=== PATIENT | male | born 1960 | race Caucasian/White ===

== ENCOUNTER 2019-06-19 18:30 | Inpatient (IN) | payer OTHER ==
[2019-06-19] MEDS ORDERED: DIPH,PERTUS(ACELL)TETVAC-LF 0.5 ML VIAL IM ONE (18:40)
[2019-06-19] MEDS ORDERED: SODIUM CHLORIDE 0.9% 1,000 ML IV STA (18:40)
[2019-06-19 18:41] LABS: Glucose,Whole Blood 452 mg/dL (75-99)
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
[2019-06-19 18:57] LABS: Basophils % (A) 0 %; Eosinophils # (A) 0.1 k/uL (0-0.7); Eosinophils % (A) 0 %; HCT 41.6 % (39.0-53.0); HGB 13.7 gm/dL (13.0-17.5); Lymphocytes # (A) 1.3 k/uL (1.0-4.8); Lymphocytes % (A) 10 %; MCH 28.9 pg (25.0-35.0); MCHC 32.9 g/dL (31.0-37.0); MCV 87.7 fL (80.0-100.0); Mean Platelet Volume 7.1; Monocytes # (A) 0.5 k/uL (0-1.0); Monocytes % (A) 4 %; Neutrophils # (A) 11.3 k/uL (1.3-7.7); Neutrophils % (A) 85 %; Platelet Count 346 k/uL (150-450); RBC 4.75 m/uL (4.30-5.90); RDW 13.9 % (11.5-15.5); WBC 13.3 k/uL (3.8-10.6)
[2019-06-19 19:01] LABS: ALT 74 U/L (21-72); AST 171 U/L (17-59); African American GFR (CKD) >90 (>60 ml/min/1.73 sqM); Albumin 3.8 g/dL (3.5-5.0); Alcohol 18 mg/dL; Alkaline Phosphatase 75 U/L (38-126); Amylase 31 U/L (30-110); Anion Gap 19 mmol/L; Blood Urea Nitrogen 19 mg/dL (9-20); Carbon Dioxide 13 mmol/L (22-30); Chloride 103 mmol/L (98-107); Glucose 480 mg/dL (74-99); Potassium 5.3 mmol/L (3.5-5.1); Sodium 135 mmol/L (137-145); Total Bilirubin 0.5 mg/dL (0.2-1.3); Total Protein 6.5 g/dL (6.3-8.2)
[2019-06-19 19:05] LABS: INR 0.9 (<1.2); Prothrombin Time 9.8 sec (9.0-12.0)
[2019-06-19 19:07] LABS: Partial Thromboplastin Time 21.5 sec (22.0-30.0)
[2019-06-19] MEDS ORDERED: SODIUM CHLORIDE 0.9% 1,000 ML IV ONE (19:07)
[2019-06-19 19:10] LABS: Creatine Kinase 176 U/L (55-170)
[2019-06-19 19:24] LABS: Creatine Kinase MB 1.3 ng/mL (0.0-2.4); Troponin I <0.012 ng/mL (0.000-0.034)
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
--- NOTE | 2019-06-19 19:26 | XR ---
EXAMINATION TYPE: XR pelvis AP view DATE OF EXAM: 06/19/2019 COMPARISON: NONE HISTORY: Pain TECHNIQUE: Single view FINDINGS: Pelvic ring appears intact. Proximal femurs are intact. There is right hip joint space narr owing. There is right femoral head spur formation. Sacroiliac joints appear intact. IMPRESSION: No fracture seen. Moderate osteoarthritis right hip joint.
[2019-06-19] MEDS: MORPHINE SULFATE 4 MG/ML SYRINGE IVP STA ×2 (19:31→21:40)
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
[2019-06-19 19:39] LABS: Appearance,Urine Clear (Clear); Bilirubin,Urine Negative (Negative); Blood,Urine Negative (Negative); Color,Urine Light Yellow; Glucose,Urine (UA) 4+ (Negative); Leukocyte Esterase,Urine Negative (Negative); Nitrite,Urine Negative (Negative); Protein,Urine Negative (Negative); Specific Gravity,Urine 1.027 (1.001-1.035); Urobilinogen,Urine <2.0 mg/dL (<2.0)
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
[2019-06-19 19:53] LABS: Glucose,Whole Blood 414 mg/dL (75-99)
[2019-06-19 19:54] LABS: Amphetamine Screen,Urine Not Detected (NotDetected); Barbiturate Screen,Urine Not Detected (NotDetected); Benzodiazepines Screen,Urine Not Detected (NotDetected); Cocaine Screen,Urine Not Detected (NotDetected); Methadone Screen, Urine Not Detected (NotDetected); Opiate Screen,Urine Detected (NotDetected); Oxycodone Screen, Urine Not Detected (NotDetected); Phencyclidine Screen,Urine Not Detected (NotDetected); Tricyclic Antidepressant,Urine Not Detected (NotDetected); Urn Cannabinoid Scrn Not Detected (NotDetected)
[2019-06-19 20:00] LABS: Ketones,Urine 2+ (Negative)
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
--- NOTE | 2019-06-19 20:50 | XR ---
EXAMINATION TYPE: XR shoulder complete BILAT DATE OF EXAM: 06/19/2019 COMPARISON: NONE HISTORY: Pain. TECHNIQUE: 3 views each shoulder. FINDINGS: I see no fracture nor dislocation. Glenohumeral joints are anatomic. There is soft tissue s welling lateral to the left shoulder joint. IMPRESSION: Soft tissue swelling. No fracture seen.
--- NOTE | 2019-06-19 20:51 | XR ---
EXAMINATION TYPE: XR humerus bilateral DATE OF EXAM: 06/19/2019 COMPARISON: NONE HISTORY: Pain TECHNIQUE: 3 views each humerus FINDINGS: I see no fracture nor dislocation. Elbow joint and shoulder joint appear intact. There is s oft tissue swelling lateral to the left shoulder. IMPRESSION: Left-sided soft tissue swelling. No fracture seen.
[2019-06-19] MEDS ORDERED: INSULIN REGULAR BOLUS (FROM DRIP BAG) IV ONE (21:10)
[2019-06-19] MEDS ORDERED: Potassium Replacement Protocol 1 EACH MISC MISCELLANE PRN (21:10)
[2019-06-19] MEDS ORDERED: Magnesium Replacement Protocol 1 EACH MISC MISCELLANE PRN (21:10)
[2019-06-19] MEDS ORDERED: ACETAMINOPHEN TAB 325 MG TAB PO PRN (21:22)
[2019-06-19] MEDS ORDERED: ONDANSETRON 4 MG/2 ML VIAL IVP PRN (21:22)
[2019-06-19] MEDS ORDERED: NALOXONE 0.4 MG/ML 1 ML VIAL IV PRN (21:22)
[2019-06-19] MEDS: SODIUM CHLORIDE 0.9% 1,000 ML IV SCH ×2 (21:43→21:49)
[2019-06-19] MEDS ORDERED: MORPHINE SULFATE 4 MG/ML SYRINGE IVP STA (21:44)
[2019-06-19 21:46] LABS: Glucose,Whole Blood 273 mg/dL (75-99)
[2019-06-19 22:50] LABS: Glucose,Whole Blood 228 mg/dL (75-99)
[2019-06-20] MEDS ORDERED: LIDOCAINE 5% OINTMENT 50 GM JAR TOPICAL PRN
[2019-06-20] MEDS: HYDROcodone/APAP 5-325MG 1 EACH TAB PO PRN ×3 (00:01→10:07)
[2019-06-20] MEDS: INSULIN REGULAR 100 UNIT in SODIUM CHLORIDE 0.9% 100 ML IV SCH ×2 (00:02→07:54)
[2019-06-20] MEDS: MORPHINE SULFATE 4 MG/ML SYRINGE IVP PRN ×2 (00:47→08:12)
[2019-06-20 00:52] LABS: ALT 65 U/L (21-72); AST 86 U/L (17-59); African American GFR (CKD) >90 (>60 ml/min/1.73 sqM); Albumin 3.6 g/dL (3.5-5.0); Alkaline Phosphatase 66 U/L (38-126); Anion Gap 11 mmol/L; Blood Urea Nitrogen 18 mg/dL (9-20); Calcium 8.7 mg/dL (8.4-10.2); Carbon Dioxide 21 mmol/L (22-30); Chloride 106 mmol/L (98-107); Glucose 224 mg/dL (74-99); Potassium 4.6 mmol/L (3.5-5.1); Sodium 138 mmol/L (137-145); Total Bilirubin 0.6 mg/dL (0.2-1.3); Total Protein 6.3 g/dL (6.3-8.2)
[2019-06-20 05:14] LABS: Basophils # (A) 0.1 k/uL (0-0.2); Basophils % (A) 0 %; Eosinophils # (A) 0.2 k/uL (0-0.7); Eosinophils % (A) 1 %; HCT 34.7 % (39.0-53.0); HGB 11.9 gm/dL (13.0-17.5); Lymphocytes % (A) 8 %; MCH 29.2 pg (25.0-35.0); MCHC 34.3 g/dL (31.0-37.0); MCV 85.2 fL (80.0-100.0); Mean Platelet Volume 7.4; Monocytes # (A) 0.8 k/uL (0-1.0); Monocytes % (A) 7 %; Neutrophils # (A) 9.8 k/uL (1.3-7.7); Neutrophils % (A) 83 %; Platelet Count 277 k/uL (150-450); RBC 4.08 m/uL (4.30-5.90); RDW 15.4 % (11.5-15.5); WBC 11.9 k/uL (3.8-10.6)
[2019-06-20 05:42] LABS: African American GFR (CKD) >90 (>60 ml/min/1.73 sqM); Anion Gap 9 mmol/L; Blood Urea Nitrogen 15 mg/dL (9-20); Calcium 7.2 mg/dL (8.4-10.2); Carbon Dioxide 18 mmol/L (22-30); Chloride 110 mmol/L (98-107); Glucose 211 mg/dL (74-99); Potassium 3.8 mmol/L (3.5-5.1); Sodium 137 mmol/L (137-145)
[2019-06-20 06:52] LABS: Glucose,Whole Blood 204 mg/dL (75-99)
[2019-06-20] MEDS: INSULIN ASPART (NovoLOG) 100 UNIT/ML VIAL SQ SCH ×4 (07:04→21:17)
[2019-06-20] MEDS: SODIUM CHLORIDE 0.9% 1,000 ML IV SCH ×3 (09:00→18:43)
[2019-06-20] MEDS: PANTOPRAZOLE 40 MG/10 ML VIAL IV SCH (09:02)
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
[2019-06-20] MEDS ORDERED: INSULIN DETEMIR (LEVEMIR) 100 UNIT/ML SYR SQ ONE (09:45)
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
[2019-06-20 11:44] LABS: Glucose,Whole Blood 168 mg/dL (75-99)
[2019-06-20] MEDS ORDERED: IV FLUID CONTINUATION 1,000 ML IV ONE (13:08)
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
[2019-06-20] MEDS ORDERED: fentaNYL (PF) 50 MCG/ML 2 ML AMP ONE (14:18)
[2019-06-20] MEDS ORDERED: LIDOCAINE 1% INJ 10MG/ML (20 ML MDV) ONE (14:18)
[2019-06-20] MEDS ORDERED: ROCURONIUM BROMIDE 10 MG/ML 10 ML VIAL IV ONE (14:18)
[2019-06-20] MEDS ORDERED: PROPOFOL 10 MG/ML 20 ML VIAL IV ONE (14:18)
[2019-06-20] MEDS ORDERED: MIDAZOLAM 2 MG/2 ML VIAL ONE (14:18)
[2019-06-20] MEDS ORDERED: SUCCINYLCHOLINE CHLORIDE 100 MG/5 ML SYR IV ONE (14:18)
[2019-06-20] MEDS ORDERED: HYDROmorphone (PF) 1 MG/ML ONE (14:18)
[2019-06-20] MEDS ORDERED: SODIUM CHLORIDE 0.9% 50 ML with ceFAZolin 1,000 MG IV ONE ×2 (14:51)
[2019-06-20] MEDS ORDERED: LACTATED RINGERS 1,000 ML IV ONE (16:44)
[2019-06-20 17:18] LABS: Glucose,Whole Blood 163 mg/dL (75-99)
[2019-06-20] MEDS ORDERED: HYDROmorphone 0.5 MG/0.5 ML SYRINGE IVP PRN (17:35)
[2019-06-20] MEDS ORDERED: HYDROmorphone 1 MG/ML 1 ML SYRINGE IVP ONE ×2 (17:44→17:54)
[2019-06-20 18:20] LABS: Glucose,Whole Blood 161 mg/dL (75-99)
[2019-06-20] MEDS: ENOXAPARIN 40 MG/0.4 ML SYRINGE SQ SCH (19:14)
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
[2019-06-20 20:30] LABS: Glucose,Whole Blood 157 mg/dL (75-99)
[2019-06-20] MEDS ORDERED: SODIUM CHLORIDE 0.9% 1,000 ML IV SCH (21:15)
[2019-06-20 21:18] LABS: Glucose,Whole Blood 178 mg/dL (75-99)
[2019-06-20] MEDS: HYDROmorphone 1 MG/ML 1 ML SYRINGE IVP PRN (21:18)
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
[2019-06-21 00:16] LABS: Glucose,Whole Blood 164 mg/dL (75-99)
[2019-06-21] MEDS: HYDROmorphone 1 MG/ML 1 ML SYRINGE IVP PRN ×2 (02:48→14:11)
[2019-06-21 05:09] LABS: Basophils # (A) 0.1 k/uL (0-0.2); Basophils % (A) 1 %; Eosinophils # (A) 0.1 k/uL (0-0.7); Eosinophils % (A) 1 %; HCT 35.2 % (39.0-53.0); HGB 11.7 gm/dL (13.0-17.5); Lymphocytes # (A) 0.9 k/uL (1.0-4.8); Lymphocytes % (A) 9 %; MCH 28.4 pg (25.0-35.0); MCHC 33.3 g/dL (31.0-37.0); MCV 85.4 fL (80.0-100.0); Mean Platelet Volume 7.8; Monocytes # (A) 0.9 k/uL (0-1.0); Monocytes % (A) 9 %; Neutrophils % (A) 79 %; Platelet Count 295 k/uL (150-450); RBC 4.13 m/uL (4.30-5.90); RDW 14.6 % (11.5-15.5); WBC 10.1 k/uL (3.8-10.6)
[2019-06-21 05:25] LABS: African American GFR (CKD) >90 (>60 ml/min/1.73 sqM); Anion Gap 10 mmol/L; Blood Urea Nitrogen 9 mg/dL (9-20); Calcium 7.9 mg/dL (8.4-10.2); Carbon Dioxide 21 mmol/L (22-30); Chloride 102 mmol/L (98-107); Glucose 183 mg/dL (74-99); Potassium 3.8 mmol/L (3.5-5.1); Sodium 133 mmol/L (137-145)
[2019-06-21] MEDS: HYDROcodone/APAP 5-325MG 1 EACH TAB PO PRN ×3 (05:57→22:27)
[2019-06-21 07:00] LABS: Glucose,Whole Blood 216 mg/dL (75-99)
[2019-06-21] MEDS: INSULIN ASPART (NovoLOG) 100 UNIT/ML VIAL SQ SCH ×4 (07:04→22:28)
--- NOTE | 2019-06-21 08:07 | XR ---
EXAMINATION TYPE: XR ankle limited LT DATE OF EXAM: 06/20/2019 COMPARISON: NONE HISTORY: ORIF TECHNIQUE: 4 intraoperative views submitted FINDINGS: Postsurgical changes are seen in near-anatomic alignment. IMPRESSION: Postoperative change
--- NOTE | 2019-06-21 08:31 | XR ---
EXAMINATION TYPE: XR toes RT DATE OF EXAM: 06/20/2019 COMPARISON: NONE HISTORY: Intraoperative TECHNIQUE: 2 intraoperative images submitted FINDINGS: There is postsurgical change involving the first digit. IMPRESSION: Intraoperative image
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
[2019-06-21] MEDS ORDERED: INSULIN DETEMIR (LEVEMIR) 100 UNIT/ML SYR SQ SCH ×2 (09:30→21:00)
[2019-06-21] MEDS: PANTOPRAZOLE 40 MG/10 ML VIAL IV SCH (09:32)
[2019-06-21] MEDS: HYDROmorphone 0.5 MG/0.5 ML SYRINGE IVP PRN (09:32)
[2019-06-21] MEDS: ENOXAPARIN 40 MG/0.4 ML SYRINGE SQ SCH (09:32)
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
[2019-06-21 12:38] LABS: Glucose,Whole Blood 286 mg/dL (75-99)
[2019-06-21] MEDS: PETROLAT,WHITE/LAN/8-HYDROXYQU 227 GM OINT TOPICAL SCH (14:14)
[2019-06-21 17:01] LABS: Glucose,Whole Blood 324 mg/dL (75-99)
[2019-06-21 20:41] LABS: Glucose,Whole Blood 279 mg/dL (75-99)
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
[2019-06-22 06:40] LABS: Glucose,Whole Blood 117 mg/dL (75-99)
[2019-06-22] MEDS: HYDROcodone/APAP 5-325MG 1 EACH TAB PO PRN ×2 (07:15→12:56)
[2019-06-22] MEDS: INSULIN ASPART (NovoLOG) 100 UNIT/ML VIAL SQ SCH ×4 (07:16→20:44)
[2019-06-22] MEDS: PANTOPRAZOLE 40 MG TABLET PO SCH (09:00)
[2019-06-22] MEDS: ENOXAPARIN 40 MG/0.4 ML SYRINGE SQ SCH (09:00)
[2019-06-22] MEDS: PETROLAT,WHITE/LAN/8-HYDROXYQU 227 GM OINT TOPICAL SCH (09:00)
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
[2019-06-22 11:50] LABS: Glucose,Whole Blood 254 mg/dL (75-99)
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
[2019-06-22] MEDS: HYDROmorphone 1 MG/ML 1 ML SYRINGE IVP PRN (16:51)
[2019-06-22 17:00] LABS: Glucose,Whole Blood 228 mg/dL (75-99)
[2019-06-22] MEDS: INSULN ASP PRT/INSULIN ASPART 100 UNIT/ML 10 ML VIAL SQ SCH (17:20)
[2019-06-22] MEDS: HYDROGEN PEROXIDE BOTTLE TOPICAL SCH ×2 (18:47→21:32)
[2019-06-22 20:41] LABS: Glucose,Whole Blood 247 mg/dL (75-99)
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
[2019-06-23 01:07] LABS: Hemoglobin A1C 12.7 % (4.0-6.0)
[2019-06-23] MEDS: HYDROcodone/APAP 5-325MG 1 EACH TAB PO PRN ×2 (02:39→21:42)
[2019-06-23 07:13] LABS: Glucose,Whole Blood 270 mg/dL (75-99)
[2019-06-23] MEDS: INSULN ASP PRT/INSULIN ASPART 100 UNIT/ML 10 ML VIAL SQ SCH ×2 (07:23→17:08)
[2019-06-23] MEDS: INSULIN ASPART (NovoLOG) 100 UNIT/ML VIAL SQ SCH ×4 (07:23→21:44)
[2019-06-23] MEDS: PANTOPRAZOLE 40 MG TABLET PO SCH (07:54)
[2019-06-23] MEDS: ENOXAPARIN 40 MG/0.4 ML SYRINGE SQ SCH (07:54)
[2019-06-23 08:56] LABS: Basophils # (A) 0.1 k/uL (0-0.2); Basophils % (A) 2 %; Eosinophils # (A) 0.1 k/uL (0-0.7); Eosinophils % (A) 2 %; HCT 34.9 % (39.0-53.0); HGB 11.5 gm/dL (13.0-17.5); Lymphocytes % (A) 13 %; MCH 28.1 pg (25.0-35.0); MCHC 32.9 g/dL (31.0-37.0); MCV 85.3 fL (80.0-100.0); Mean Platelet Volume 6.7; Monocytes # (A) 0.8 k/uL (0-1.0); Monocytes % (A) 11 %; Neutrophils # (A) 5.3 k/uL (1.3-7.7); Neutrophils % (A) 70 %; Platelet Count 391 k/uL (150-450); RBC 4.08 m/uL (4.30-5.90); RDW 13.4 % (11.5-15.5); WBC 7.6 k/uL (3.8-10.6)
[2019-06-23 09:19] LABS: ALT 32 U/L (21-72); AST 47 U/L (17-59); African American GFR (CKD) >90 (>60 ml/min/1.73 sqM); Albumin 2.9 g/dL (3.5-5.0); Alkaline Phosphatase 80 U/L (38-126); Anion Gap 10 mmol/L; Blood Urea Nitrogen 9 mg/dL (9-20); Calcium 8.3 mg/dL (8.4-10.2); Carbon Dioxide 25 mmol/L (22-30); Chloride 98 mmol/L (98-107); Glucose 314 mg/dL (74-99); Magnesium 1.8 mg/dL (1.6-2.3); Potassium 3.6 mmol/L (3.5-5.1); Sodium 133 mmol/L (137-145); Total Bilirubin 0.6 mg/dL (0.2-1.3); Total Protein 5.7 g/dL (6.3-8.2)
[2019-06-23] MEDS: PETROLAT,WHITE/LAN/8-HYDROXYQU 227 GM OINT TOPICAL SCH (09:45)
[2019-06-23] MEDS: HYDROmorphone 1 MG/ML 1 ML SYRINGE IVP PRN ×2 (09:45→15:40)
[2019-06-23] MEDS: HYDROGEN PEROXIDE BOTTLE TOPICAL SCH ×2 (09:58→21:45)
[2019-06-23 11:47] LABS: Glucose,Whole Blood 219 mg/dL (75-99)
[2019-06-23] MEDS ORDERED: INSULN ASP PRT/INSULIN ASPART 100 UNIT/ML 10 ML VIAL SQ SCH (12:30)
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
[2019-06-23 16:58] LABS: Glucose,Whole Blood 265 mg/dL (75-99)
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
[2019-06-23 21:21] LABS: Glucose,Whole Blood 197 mg/dL (75-99)
[2019-06-24] MEDS: HYDROmorphone 1 MG/ML 1 ML SYRINGE IVP PRN (03:48)
[2019-06-24 06:55] LABS: Glucose,Whole Blood 389 mg/dL (75-99)
[2019-06-24] MEDS ORDERED: VITS A & D-WHITE PET-LANOLIN 5 GM OINT.PACK TOPICAL PRN (06:57)
[2019-06-24] MEDS: INSULN ASP PRT/INSULIN ASPART 100 UNIT/ML 10 ML VIAL SQ SCH ×2 (07:37→17:26)
[2019-06-24] MEDS: INSULIN ASPART (NovoLOG) 100 UNIT/ML VIAL SQ SCH ×4 (07:37→20:39)
[2019-06-24] MEDS: PANTOPRAZOLE 40 MG TABLET PO SCH (07:38)
[2019-06-24] MEDS: ENOXAPARIN 40 MG/0.4 ML SYRINGE SQ SCH (07:45)
[2019-06-24] MEDS: HYDROcodone/APAP 5-325MG 1 EACH TAB PO PRN ×3 (07:46→21:27)
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
[2019-06-24] MEDS: PETROLAT,WHITE/LAN/8-HYDROXYQU 227 GM OINT TOPICAL SCH (09:48)
[2019-06-24] MEDS: HYDROGEN PEROXIDE BOTTLE TOPICAL SCH ×2 (09:49→20:40)
[2019-06-24] MEDS: HYDROmorphone 0.5 MG/0.5 ML SYRINGE IVP PRN (10:44)
--- NOTE | 2019-06-24 11:04 | P.PN ---
Progress Note - Text Progress Note Date: 06/24/19 Patient is surgically and medically stable for discharge. He does not have medical insurance and currently case management is working with the patient to establish medical insurance with [employer] Due to his orthopedic injuries, he is a candidate for inpatient rehabilitation. Discharge order has been placed as we are waiting approval and acceptance to inpatient rehabilitation.
[2019-06-24 11:41] LABS: Glucose,Whole Blood 275 mg/dL (75-99)
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
[2019-06-24] MEDS ORDERED: INSULN ASP PRT/INSULIN ASPART 100 UNIT/ML 10 ML VIAL SQ SCH (12:30)
[2019-06-24] MEDS: COLLAGENASE 250 UNIT/GM OINTMENT 30 GM TUBE TOPICAL SCH (12:58)
[2019-06-24 16:57] LABS: Glucose,Whole Blood 183 mg/dL (75-99)
[2019-06-24 20:25] LABS: Glucose,Whole Blood 163 mg/dL (75-99)
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
[2019-06-25] MEDS: HYDROmorphone 0.5 MG/0.5 ML SYRINGE IVP PRN (00:57)
[2019-06-25] MEDS: HYDROcodone/APAP 5-325MG 1 EACH TAB PO PRN ×4 (05:38→22:53)
[2019-06-25 06:58] LABS: Glucose,Whole Blood 317 mg/dL (75-99)
[2019-06-25] MEDS: INSULN ASP PRT/INSULIN ASPART 100 UNIT/ML 10 ML VIAL SQ SCH ×2 (07:05→17:25)
[2019-06-25] MEDS: INSULIN ASPART (NovoLOG) 100 UNIT/ML VIAL SQ SCH ×4 (07:05→20:24)
[2019-06-25] MEDS: ENOXAPARIN 40 MG/0.4 ML SYRINGE SQ SCH (07:06)
[2019-06-25] MEDS: PANTOPRAZOLE 40 MG TABLET PO SCH (07:06)
--- NOTE | 2019-06-25 10:27 | P.PN ---
Progress Note - Text Surgically stable for discharge to rehab
[2019-06-25] MEDS: PETROLAT,WHITE/LAN/8-HYDROXYQU 227 GM OINT TOPICAL SCH (10:43)
[2019-06-25] MEDS: HYDROGEN PEROXIDE BOTTLE TOPICAL SCH ×2 (10:44→20:24)
[2019-06-25] MEDS: COLLAGENASE 250 UNIT/GM OINTMENT 30 GM TUBE TOPICAL SCH (10:44)
[2019-06-25 11:54] LABS: Glucose,Whole Blood 235 mg/dL (75-99)
[2019-06-25] MEDS ORDERED: INSULN ASP PRT/INSULIN ASPART 100 UNIT/ML 10 ML VIAL SQ SCH (12:30)
[2019-06-25] MEDS: HYDROmorphone 1 MG/ML 1 ML SYRINGE IVP PRN (16:04)
[2019-06-25 16:44] LABS: Glucose,Whole Blood 211 mg/dL (75-99)
[2019-06-25 20:32] LABS: Glucose,Whole Blood 184 mg/dL (75-99)
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
[2019-06-26] MEDS: HYDROcodone/APAP 5-325MG 1 EACH TAB PO PRN ×4 (05:34→21:42)
[2019-06-26 07:07] LABS: Glucose,Whole Blood 171 mg/dL (75-99)
[2019-06-26] MEDS: PANTOPRAZOLE 40 MG TABLET PO SCH (07:46)
[2019-06-26] MEDS: ENOXAPARIN 40 MG/0.4 ML SYRINGE SQ SCH (07:47)
[2019-06-26] MEDS: INSULIN ASPART (NovoLOG) 100 UNIT/ML VIAL SQ SCH ×4 (07:47→21:33)
[2019-06-26] MEDS: INSULN ASP PRT/INSULIN ASPART 100 UNIT/ML 10 ML VIAL SQ SCH ×3 (07:47→16:34)
[2019-06-26] MEDS: HYDROmorphone 1 MG/ML 1 ML SYRINGE IVP PRN (11:10)
[2019-06-26 11:23] LABS: Glucose,Whole Blood 179 mg/dL (75-99)
[2019-06-26] MEDS: PETROLAT,WHITE/LAN/8-HYDROXYQU 227 GM OINT TOPICAL SCH (12:12)
[2019-06-26] MEDS: COLLAGENASE 250 UNIT/GM OINTMENT 30 GM TUBE TOPICAL SCH (12:13)
[2019-06-26] MEDS: HYDROGEN PEROXIDE BOTTLE TOPICAL SCH ×2 (12:13→21:34)
--- NOTE | 2019-06-26 12:34 | P.PN ---
Progress Note - Text Progress Note Date: 06/26/19 Continue medical care. Discharge when rehab is available or medically stable
[2019-06-26 16:41] LABS: Glucose,Whole Blood 161 mg/dL (75-99)
[2019-06-26 21:04] LABS: Glucose,Whole Blood 137 mg/dL (75-99)
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
[2019-06-27 02:06] VITALS: RESP 18
[2019-06-27] MEDS: HYDROcodone/APAP 5-325MG 1 EACH TAB PO PRN ×3 (03:01→16:12)
[2019-06-27 06:51] LABS: Glucose,Whole Blood 147 mg/dL (75-99)
[2019-06-27] MEDS: HYDROGEN PEROXIDE BOTTLE TOPICAL SCH (08:31)
[2019-06-27] MEDS: PETROLAT,WHITE/LAN/8-HYDROXYQU 227 GM OINT TOPICAL SCH (08:32)
[2019-06-27] MEDS: INSULIN ASPART (NovoLOG) 100 UNIT/ML VIAL SQ SCH ×3 (08:32→18:11)
[2019-06-27] MEDS: PANTOPRAZOLE 40 MG TABLET PO SCH (08:32)
[2019-06-27] MEDS: COLLAGENASE 250 UNIT/GM OINTMENT 30 GM TUBE TOPICAL SCH (08:32)
[2019-06-27] MEDS: INSULN ASP PRT/INSULIN ASPART 100 UNIT/ML 10 ML VIAL SQ SCH ×3 (08:32→18:11)
[2019-06-27] MEDS: ENOXAPARIN 40 MG/0.4 ML SYRINGE SQ SCH (08:32)
[2019-06-27 11:28] LABS: Glucose,Whole Blood 200 mg/dL (75-99)
[2019-06-27 13:56] VITALS: BP 135/74; PULSE 92; TEMP 98.6
[2019-06-27 16:00] VITALS: BMI 29.9
== END 2019-06-27 18:28 | disposition home or self-care (01) | DRG 492 ==
LOC: EC 18:30 → 2SICU 21:24 → 4SSUR 06-22 21:08
PROVIDERS: ADMIT Surgery; ATTEND Surgery
PROC: 0QSQ04Z Reposition Right Toe Phalanx with Internal Fixation Device, Open Approach (ICD-10-PCS; 2019-06-20)
PROC: 0QSK04Z Reposition Left Fibula with Internal Fixation Device, Open Approach (ICD-10-PCS; principal; 2019-06-20 14:20)
PROC: 0QSH04Z Reposition Left Tibia with Internal Fixation Device, Open Approach (ICD-10-PCS; 2019-06-20 14:20)
DX: S82.842A Displaced bimalleolar fracture of left lower leg, initial encounter for closed fracture (principal); E10.10 Type 1 diabetes mellitus with ketoacidosis without coma; E10.42 Type 1 diabetes mellitus with diabetic polyneuropathy; E10.621 Type 1 diabetes mellitus with foot ulcer; E87.5 Hyperkalemia; S82.832A Other fracture of upper and lower end of left fibula, initial encounter for closed fracture; S92.411B Displaced fracture of proximal phalanx of right great toe, initial encounter for open fracture; D72.829 Elevated white blood cell count, unspecified; L97.512 Non-pressure chronic ulcer of other part of right foot with fat layer exposed; S40.812A Abrasion of left upper arm, initial encounter; S40.811A Abrasion of right upper arm, initial encounter; S30.810A Abrasion of lower back and pelvis, initial encounter; S20.419A Abrasion of unspecified back wall of thorax, initial encounter; S40.212A Abrasion of left shoulder, initial encounter; S40.211A Abrasion of right shoulder, initial encounter; R04.0 Epistaxis; Z79.4 Long term (current) use of insulin; Z74.1 Need for assistance with personal care; V28.1XXA Motorcycle passenger injured in noncollision transport accident in nontraffic accident, initial encounter; Y92.410 Unspecified street and highway as the place of occurrence of the external cause
CPT/HCPCS: 36415; 70450; 71045; 71260; 72125; 72170; 74177; 80048; 80053; 80306; 80320; 81003; 82150; 82306; 82550; 82553; 83036; 83605; 83690; 83735; 84100; 84484; 85025; 85610; 85730; 86850; 86900; 86901; 90471; 90715; 94760; 96361; 96374; 96376; 99291

== ENCOUNTER → 2019-11-25 | Outpatient (CLI) | payer OTHER ==
--- NOTE | 2019-11-25 11:20 | US ---
EXAMINATION TYPE: US venous doppler duplex LE LT DATE OF EXAM: 11/25/2019 11:02 AM COMPARISON: NONE CLINICAL HISTORY: I80.9 Phlebitis and thrombophlebitis of unspecifie. calf redness. No hx blood clot s. Hx left ankle injury. SIDE PERFORMED: Left TECHNIQUE: The lower extremity deep venous system is examined utilizing real time linear array sonog yuval with graded compression, doppler sonography and color-flow sonography. VESSELS IMAGED: External Iliac Vein (EIV) Common Femoral Vein Deep Femoral Vein Greater Saphenous Vein * Femoral Vein Popliteal Vein Small Saphenous Vein * Proximal Calf Veins (* superficial vessels) Grayscale, color doppler, spectral doppler imaging performed of the deep veins of the left lower extr emity. There is normal flow, compressibility, vascular waveforms. Left Leg: Negative for DVT. In left groin, upper limits of normal size lymph nodes seen. The larges t measures 3.3 x 1.4 x 0.8 cm IMPRESSION: 1. No sonographic evidence of deep venous thrombosis within the L4 extremity. 2. Multiple left superficial inguinal lymph nodes that are upper limits of normal size. These could b e reactive. Short-term follow-up targeted ultrasound could be performed in 3 months to ensure no inte rval growth.
== END | disposition home or self-care (01) ==
LOC: RADUSWWP 10:39
PROVIDERS: ATTEND Orthopaedic Surgery
DX: I80.9 Phlebitis and thrombophlebitis of unspecified site (principal); M25.572 Pain in left ankle and joints of left foot; M79.662 Pain in left lower leg
CPT/HCPCS: 87070; 87075; 87077; 87186; 87205

== ENCOUNTER → 2019-11-26 | Outpatient (CLI) | payer OTHER ==
[2019-11-26 11:47] LABS: Basophils # (A) 0.1 k/uL (0-0.2); Basophils % (A) 1 %; Eosinophils # (A) 0.3 k/uL (0-0.7); Eosinophils % (A) 3 %; HCT 43.7 % (39.0-53.0); HGB 14.4 gm/dL (13.0-17.5); Lymphocytes # (A) 1.5 k/uL (1.0-4.8); Lymphocytes % (A) 17 %; MCH 27.9 pg (25.0-35.0); MCHC 32.9 g/dL (31.0-37.0); MCV 84.7 fL (80.0-100.0); Mean Platelet Volume 7.2; Monocytes # (A) 0.5 k/uL (0-1.0); Monocytes % (A) 6 %; Neutrophils # (A) 6.4 k/uL (1.3-7.7); Neutrophils % (A) 72 %; Platelet Count 414 k/uL (150-450); RBC 5.16 m/uL (4.30-5.90); RDW 13.3 % (11.5-15.5)
[2019-11-26 13:06] LABS: Erythrocyte Sedimentation Rate 58 mm/hr (0-15)
== END | disposition home or self-care (01) ==
LOC: LABWHC1 11:00
PROVIDERS: ATTEND Orthopaedic Surgery
DX: M25.572 Pain in left ankle and joints of left foot (principal); Z48.89 Encounter for other specified surgical aftercare; M79.662 Pain in left lower leg; I80.9 Phlebitis and thrombophlebitis of unspecified site; E11.9 Type 2 diabetes mellitus without complications
CPT/HCPCS: 36415; 85025; 85652; 86140

== ENCOUNTER → 2020-02-17 | Outpatient (CLI) | payer OTHER ==
[2020-02-17 10:42] LABS: Appearance,Urine Clear (Clear); Bilirubin,Urine Negative (Negative); Blood,Urine Negative (Negative); Color,Urine Yellow; Glucose,Urine (UA) Trace (Negative); Ketones,Urine Negative (Negative); Leukocyte Esterase,Urine Negative (Negative); Nitrite,Urine Negative (Negative); Protein,Urine Negative (Negative); Specific Gravity,Urine 1.021 (1.001-1.035); Urobilinogen,Urine <2.0 mg/dL (<2.0)
[2020-02-17 11:13] LABS: Basophils # (A) 0.1 k/uL (0-0.2); Basophils % (A) 1 %; Eosinophils # (A) 0.3 k/uL (0-0.7); Eosinophils % (A) 5 %; HCT 43.6 % (39.0-53.0); Lymphocytes # (A) 1.9 k/uL (1.0-4.8); Lymphocytes % (A) 30 %; MCH 27.9 pg (25.0-35.0); MCHC 32.1 g/dL (31.0-37.0); MCV 86.9 fL (80.0-100.0); Mean Platelet Volume 7.3; Monocytes # (A) 0.4 k/uL (0-1.0); Monocytes % (A) 6 %; Neutrophils # (A) 3.7 k/uL (1.3-7.7); Neutrophils % (A) 56 %; Platelet Count 381 k/uL (150-450); RBC 5.01 m/uL (4.30-5.90); RDW 13.8 % (11.5-15.5); WBC 6.5 k/uL (3.8-10.6)
[2020-02-17 11:21] LABS: INR 0.9 (<1.2); Partial Thromboplastin Time 25.4 sec (22.0-30.0); Prothrombin Time 9.8 sec (9.0-12.0)
[2020-02-17 11:26] LABS: ALT 14 U/L (4-49); AST 16 U/L (17-59); African American GFR (CKD) >90 (>60 ml/min/1.73 sqM); Albumin 4.1 g/dL (3.5-5.0); Alkaline Phosphatase 77 U/L (38-126); Anion Gap 6 mmol/L; Blood Urea Nitrogen 16 mg/dL (9-20); Calcium 9.4 mg/dL (8.4-10.2); Carbon Dioxide 29 mmol/L (22-30); Chloride 104 mmol/L (98-107); Glucose 76 mg/dL (74-99); Non-African American GFR(CKD) >90 (>60 ml/min/1.73 sqM); Potassium 4.8 mmol/L (3.5-5.1); Sodium 139 mmol/L (137-145); Total Bilirubin 0.5 mg/dL (0.2-1.3); Total Protein 7.4 g/dL (6.3-8.2)
[2020-02-17 18:40] LABS: Hemoglobin A1C 11.7 % (4.0-6.0)
== END | disposition home or self-care (01) ==
LOC: LABPAT 10:03
PROVIDERS: ATTEND Orthopaedic Surgery
DX: Z01.818 Encounter for other preprocedural examination (principal); U07.1 COVID-19; E10.65 Type 1 diabetes mellitus with hyperglycemia
CPT/HCPCS: 80053; 81003; 83036; 85025; 85610; 85730; 87635

== ENCOUNTER → 2020-02-29 | Outpatient (CLI) | payer OTHER | END | disposition home or self-care (01) | LOC: LABWHC1 12:45 | PROVIDERS: ATTEND Orthopaedic Surgery | DX: Z11.59 Encounter for screening for other viral diseases (principal) ==

== ENCOUNTER 2020-03-01 06:07 | Inpatient (IN) | payer OTHER ==
[2020-02-29 11:32] VITALS: BMI 28.5
[~2020-03-01 06:07] MED LIST: DEXAMETHASONE SOD PHOSPHATE 10 MG/ML 1 ML VIAL IV ONE; HYDROmorphone 0.5 MG/0.5 ML SYRINGE IVP PRN; ONDANSETRON 4 MG/2 ML VIAL IVP ONE
[2020-03-01 06:41] LABS: Glucose,Whole Blood 115 mg/dL (75-99)
[2020-03-01] MEDS ORDERED: LIDOCAINE 1% (10MG/ML) FOR IV START INTRADERMA ONE (06:46)
[2020-03-01] MEDS: LACTATED RINGERS 1,000 ML IV SCH (06:51)
[2020-03-01] MEDS ORDERED: PROPOFOL 10 MG/ML 20 ML VIAL IV ONE (07:24)
[2020-03-01] MEDS ORDERED: LIDOCAINE 1% INJ 10MG/ML (20 ML MDV) ONE (07:24)
[2020-03-01] MEDS ORDERED: ROPIVACAINE 5 MG/ML 30 ML VIAL ONE (07:24)
[2020-03-01] MEDS ORDERED: DEXAMETHASONE SOD PHOSPHATE 4 MG/ML 1 ML VIAL ONE (07:24)
[2020-03-01] MEDS ORDERED: HYDROmorphone (PF) 1 MG/ML ONE (07:24)
[2020-03-01] MEDS ORDERED: fentaNYL (PF) 50 MCG/ML 2 ML AMP ONE (07:24)
[2020-03-01] MEDS ORDERED: KETOROLAC 30 MG/ML 1 ML VIAL ONE (07:24)
[2020-03-01] MEDS ORDERED: MIDAZOLAM 2 MG/2 ML VIAL ONE (07:24)
[2020-03-01] MEDS ORDERED: SUCCINYLCHOLINE CHLORIDE 100 MG/5 ML SYR IV ONE (07:24)
[2020-03-01] MEDS ORDERED: BUPIVACAINE (PF) 0.25% 30 ML VIAL SQ ONE (07:30)
[2020-03-01] MEDS ORDERED: NALOXONE 0.4 MG/ML 1 ML VIAL IV PRN (08:56)
[2020-03-01] MEDS ORDERED: HYDROmorphone 1 MG/ML 1 ML SYRINGE IVP PRN (08:56)
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
--- NOTE | 2020-03-01 08:57 | XR ---
EXAMINATION TYPE: XR ankle limited LT DATE OF EXAM: 03/01/2020 COMPARISON: NONE HISTORY: Ankle hardware removal FINDINGS: 2 intraoperative views demonstrate interval removal of hardware. Osseous structures intact. IMPRESSION: 1. Intraoperative change
--- NOTE | 2020-03-01 09:06 | FL ---
EXAMINATION TYPE: FL guidance operating room DATE OF EXAM: 03/01/2020 HISTORY: Fluoroscopy time 22 seconds of fluoroscopy provided. IMPRESSION: 1. Fluoroscopy time.
[2020-03-01 09:40] LABS: Glucose,Whole Blood 163 mg/dL (75-99)
[2020-03-01] MEDS ORDERED: SODIUM CHLORIDE 0.9% 1,000 ML IV ONE (11:01)
[2020-03-01] MEDS: SODIUM CHLORIDE 0.9% 1,000 ML IV SCH ×2 (14:26→22:18)
[2020-03-01] MEDS ORDERED: VANCOMYCIN IV PER PHARMACY 1 EACH MISC MISCELLANE PRN (14:56)
[2020-03-01] MEDS ORDERED: VANCOMYCIN 1,750 MG in SODIUM CHLORIDE 0.9% 500 ML 500 ML IVPB ONE (15:15)
[2020-03-01 15:52] LABS: Basophils % (A) 0 %; Eosinophils # (A) 0.1 k/uL (0-0.7); Eosinophils % (A) 1 %; HCT 43.5 % (39.0-53.0); HGB 13.6 gm/dL (13.0-17.5); Lymphocytes # (A) 0.7 k/uL (1.0-4.8); Lymphocytes % (A) 5 %; MCH 27.5 pg (25.0-35.0); MCHC 31.3 g/dL (31.0-37.0); MCV 87.7 fL (80.0-100.0); Mean Platelet Volume 7.5; Monocytes # (A) 0.2 k/uL (0-1.0); Monocytes % (A) 2 %; Neutrophils # (A) 12.3 k/uL (1.3-7.7); Neutrophils % (A) 92 %; Platelet Count 336 k/uL (150-450); RBC 4.96 m/uL (4.30-5.90); RDW 13.7 % (11.5-15.5); WBC 13.3 k/uL (3.8-10.6)
[2020-03-01 15:56] LABS: African American GFR (CKD) >90 (>60 ml/min/1.73 sqM); Anion Gap 8 mmol/L; Blood Urea Nitrogen 18 mg/dL (9-20); C Reactive Protein <5.0 mg/L (<10.0); Calcium 8.9 mg/dL (8.4-10.2); Carbon Dioxide 23 mmol/L (22-30); Chloride 98 mmol/L (98-107); Glucose 477 mg/dL (74-99); Non-African American GFR(CKD) 81 (>60 ml/min/1.73 sqM); Sodium 129 mmol/L (137-145)
[2020-03-01 16:07] LABS: Potassium 6.3 mmol/L (3.5-5.1)
[2020-03-01 16:27] LABS: Glucose,Whole Blood 418 mg/dL (75-99)
[2020-03-01] MEDS ORDERED: INSULIN ASPART (NovoLOG) 100 UNIT/ML VIAL SQ ONE ×2 (16:47→21:49)
--- NOTE | 2020-03-01 17:07 | P.ANPRN ---
Procedure Note - Anesthesia - Nerve Block Performed Left Popliteal Single Time Out Performed: Yes Date of Procedure: 03/01/20 Procedure Start Time: 09:45 Procedure Stop Time: 09:50 Location of Patient: PreOp Indication: Acute Post-Operative Pain, Requested by Surgeon Sedation Type: Sedate with meaningful contact maintained Preparation: Sterile Prep, Sterile Dressing Position: Right Lateral Needle Types: Pajunk Needle Gauge: 21 Ultrasound used to visualize needle placement: Yes Ultrasound used to observe medication spread: Yes Blood Aspirated: No Pain Paresthesia on Injection Noted: No Resistance on Injection: Normal Image Stored and Saved: Yes Events: Uneventful and Well Tolerated (ropi .5% 20 cc plus dexamethasone 4mg)
[2020-03-01 17:11] LABS: Erythrocyte Sedimentation Rate 11 mm/hr (0-15)
[2020-03-01] MEDS ORDERED: SODIUM POLYSTYRENE SULFONATE 15 GM/60 ML BOTTLE PO ONE (17:15)
[2020-03-01] MEDS ORDERED: INSULIN REGULAR 100 UNIT/ML VIAL IV ONE (17:15)
[2020-03-01] MEDS ORDERED: SODIUM BICARB 8.4% 50 ML SYR (1 MEQ/ML) IV ONE (17:15)
[2020-03-01] MEDS ORDERED: CALCIUM GLUCONATE 1 GM in SODIUM CHLORIDE 0.9% 100 ML IVPB ONE (18:00)
[2020-03-01] MEDS: AMPICILLIN-SULBACTAM 3 GM in SODIUM CHLORIDE 0.9% 100 ML IVPB SCH (19:01)
[2020-03-01 20:56] LABS: Glucose,Whole Blood 386 mg/dL (75-99)
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
[2020-03-01] MEDS: INSULIN ASPART (NovoLOG) 100 UNIT/ML VIAL SQ SCH (22:16)
[2020-03-01] MEDS: ENOXAPARIN 40 MG/0.4 ML SYRINGE SQ SCH (22:17)
[2020-03-01] MEDS: INSULIN NPH 300 UNIT/3 ML VIAL SQ SCH (22:17)
[2020-03-02] MEDS: AMPICILLIN-SULBACTAM 3 GM in SODIUM CHLORIDE 0.9% 100 ML IVPB SCH ×2 (01:05→07:33)
[2020-03-02] MEDS ORDERED: VANCOMYCIN 1,750 MG in SODIUM CHLORIDE 0.9% 500 ML 500 ML IVPB SCH ×2 (05:00→14:00)
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
[2020-03-02] MEDS: LACTATED RINGERS 1,000 ML IV SCH (07:26)
[2020-03-02 07:35] LABS: African American GFR (CKD) >90 (>60 ml/min/1.73 sqM); Anion Gap 4 mmol/L; Blood Urea Nitrogen 17 mg/dL (9-20); Calcium 8.6 mg/dL (8.4-10.2); Carbon Dioxide 28 mmol/L (22-30); Chloride 103 mmol/L (98-107); Glucose 161 mg/dL (74-99); Non-African American GFR(CKD) >90 (>60 ml/min/1.73 sqM); Potassium 4.1 mmol/L (3.5-5.1); Sodium 135 mmol/L (137-145)
[2020-03-02 07:37] LABS: Glucose,Whole Blood 149 mg/dL (75-99)
[2020-03-02] MEDS: ENOXAPARIN 40 MG/0.4 ML SYRINGE SQ SCH (08:01)
[2020-03-02] MEDS: INSULIN NPH 300 UNIT/3 ML VIAL SQ SCH ×2 (08:01→21:56)
[2020-03-02] MEDS: ASPIRIN 325 MG TAB PO SCH (08:01)
[2020-03-02] MEDS: INSULIN ASPART (NovoLOG) 100 UNIT/ML VIAL SQ SCH ×7 (08:01→21:56)
[2020-03-02] MEDS: SODIUM CHLORIDE 0.9% 1,000 ML IV SCH ×3 (08:34→21:56)
--- NOTE | 2020-03-02 09:48 | P.PN ---
Subjective Progress Note Date: 03/02/20 This patient is a 59-year-old male with a history left ankle fracture open reduction and internal fixation with symptomatic hardware and intermittent draining hematoma that is status post left ankle hardware removal on 03/01/[address] Cowart. The patient was admitted following the procedure for internal m edicine consultation, and infectious disease consultation. The patient is examined bedside this morning. Postoperatively patient was hyperkalemic, which was treated per internal medicine. He was placed on telemetry. Re-check of potassium is 4.1 this morning. The patient states his pain is well-controlled in the left ankle due to the block performed by anesthesia. The patient states overall he feels well this morning. He has been remaining nonweightbearing on the left ankle secondary to anesthesia recommendations. He tolerated his breakfast well. He is urinating without issue. He denies chest pain, shortness breath, nausea, vomiting, fevers, chills. Vital signs stable. Objective - Vital Signs Vital signs: Vital Signs Temp 97.7 F 03/02/20 07:00 Pulse 65 03/02/20 07:00 Resp 18 03/02/20 07:00 BP 126/75 03/02/20 07:00 Pulse Ox 97 03/02/20 07:00 Intake & Output 03/01/20 03/02/20 03/02/20 18:59 06:59 18:59 Intake Total 950 Output Total 1105 1000 Balance -155 -1000 Weight 97.3 kg Intake: IV 950 Output: Urine 1100 1000 Estimated Blood Loss 5 Other: Voiding Method Urinal # Voids 1 - Exam On examination, the patient is lying in bed in no apparent distress. He is alert and oriented 3. On inspection of the left lower extremity, there is a clean, dry, intact trey wrap in place of the left ankle. The visible portion of the toes are warm and well-perfused with brisk capillary refill distally. No pain with PROM of the toes. Patient is able to move toes and dorsiflex and plantarflex ankle without issue. Sensation to touch of the toes is decreased secondary to the block performed by anesthesia. Calf is soft and nontender to palpation. - Labs CBC & Chem 7: 03/01/20 15:26 03/02/20 06:33 Labs: Abnormal Lab Results - Last 24 Hours (Table) 06/01/1503/01/20 03/01/20 Range/Units 09:38 15:26 15:26 WBC 13.3 H (3.8-10.6) k/uL Neutrophils # 12.3 H (1.3-7.7) k/uL Lymphocytes # 0.7 L (1.0-4.8) k/uL Sodium 129 L (137-145) mmol/L Potassium 6.3 H* (3.5-5.1) mmol/L Glucose 477 H (74-99) mg/dL POC Glucose (mg/dL) 163 H (75-99) mg/dL 03/01/20 03/01/20 03/02/20 Range/Units 16:25 20:54 06:33 WBC (3.8-10.6) k/uL Neutrophils # (1.3-7.7) k/uL Lymphocytes # (1.0-4.8) k/uL Sodium 135 L (137-145) mmol/L Potassium (3.5-5.1) mmol/L Glucose 161 H (74-99) mg/dL POC Glucose (mg/dL) 418 H 386 H (75-99) mg/dL 03/02/20 Range/Units 07:36 WBC (3.8-10.6) k/uL Neutrophils # (1.3-7.7) k/uL Lymphocytes # (1.0-4.8) k/uL Sodium (137-145) mmol/L Potassium (3.5-5.1) mmol/L Glucose (74-99) mg/dL POC Glucose (mg/dL) 149 H (75-99) mg/dL Microbiology - Last 24 Hours (Table) 03/01/20 08:12 Gram Stain - Preliminary Ankle - Left Tissue Culture - Preliminary 03/01/20 08:12 Gram Stain - Preliminary Ankle - Left Wound Culture - Preliminary 03/01/20 08:12 Gram Stain - Preliminary Ankle - Left Wound Culture - Preliminary 03/01/20 08:12 Anaerobic Culture - Preliminary Ankle - Left 03/01/20 08:12 Anaerobic Culture - Preliminary Ankle - Left Assessment and Plan Assessment: History of left ankle fracture open reduction and internal fixation with symptomatic hardware and intermittent draining hematoma that is status-post left ankle hardware removal on 03/01/20. Postoperative day #1. Plan: - The patient should remain strictly nonweightbearing on the operative leg and until the block performed by anesthesia has completely worn off, per anesthesia this will take 24 hours. At the block wears off, the patient may bear to tolerance on the operative leg and a tall CAM boot. Patient is passing consult the to obtain a new tall CAM boot. - Ice and elevate operative leg for pain and swelling control. - Pain management as needed. - Continue IV antibiotics under the discretion of infectious disease. Per Dr. Bee, the patient will need a PICC line on discharge. We will continue to follow intra-operative cultures. - Aspirin 325mg daily for DVT prophylaxis. Per internal medicine, patient is also receiving Lovenox while inpatient. - Anticipate discharge home when cleared by infectious disease and internal medicine.
[2020-03-02] MEDS ORDERED: AMPICILLIN-SULBACTAM 3 GM in SODIUM CHLORIDE 0.9% 100 ML IVPB SCH (10:00)
[2020-03-02 11:50] LABS: Glucose,Whole Blood 210 mg/dL (75-99)
[2020-03-02] MEDS: VANCOMYCIN 1,500 MG in SODIUM CHLORIDE 0.9% 250 ML IVPB SCH ×2 (14:20→23:21)
--- NOTE | 2020-03-02 16:11 | PN ---
PROGRESS NOTE DATE OF SERVICE: 03/02/2020 REASON FOR FOLLOWUP: Left ankle chronic wound with secondary osteomyelitis. INTERVAL HISTORY: Patient is currently afebrile. The patient has been feeling better, breathing comfortably. Patient denies having any chest pain, no shortness of breath or cough. No nausea, abdominal pain, or any worsening pain to the left lateral ankle wound area. PHYSICAL EXAMINATION: Blood pressure 120/75, pulse of 65, temperature is 97.7, he is 97% on room air. General description is a middle-aged male lying in bed in no distress. RESPIRATORY SYSTEM: Unlabored breathing, clear to auscultation anteriorly. HEART: S1, S2. Regular rate and rhythm. ABDOMEN: Soft, no tenderness. Left lateral ankle is currently dressed up. No obvious drainage on the dressing. LABS: Wound culture now showing gram-negative bacilli. DIAGNOSTIC IMPRESSION AND PLAN: Patient with chronic nonhealing wound and discharge from the left lateral ankle wound area in this patient with underlying osteomyelitis, wound culture now showing gram- negative bacilli. Antibiotic was switched over to cefepime 2 g q.12 while waiting for final ID of this pathogen. The patient will need a PICC line and outpatient IV antibiotic. Continue supportive care. MMODL / IJN: [id number] /
[2020-03-02 17:09] LABS: Glucose,Whole Blood 176 mg/dL (75-99)
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
[2020-03-02] MEDS: HYDROcodone/APAP 5-325MG 1 EACH TAB PO PRN (19:33)
[2020-03-02 21:05] LABS: Glucose,Whole Blood 262 mg/dL (75-99)
[2020-03-02] MEDS: CEFEPIME 2 GM in SODIUM CHLORIDE 0.9% 100 ML IVPB SCH (21:57)
[2020-03-03] MEDS ORDERED: VANCOMYCIN TROUGH DUE 1 EACH MISC MISCELLANE ONE (05:00)
[2020-03-03 05:51] LABS: African American GFR (CKD) >90 (>60 ml/min/1.73 sqM); Non-African American GFR(CKD) >90 (>60 ml/min/1.73 sqM)
[2020-03-03] MEDS: VANCOMYCIN 1,500 MG in SODIUM CHLORIDE 0.9% 250 ML IVPB SCH ×2 (06:24→12:53)
[2020-03-03 07:13] LABS: Glucose,Whole Blood 198 mg/dL (75-99)
[2020-03-03] MEDS ORDERED: INSULIN ASPART (NovoLOG) 100 UNIT/ML VIAL SQ SCH (07:30)
[2020-03-03] MEDS: INSULIN ASPART (NovoLOG) 100 UNIT/ML VIAL SQ SCH ×6 (08:26→21:39)
[2020-03-03] MEDS: LACTATED RINGERS 1,000 ML IV SCH (09:07)
[2020-03-03] MEDS: ASPIRIN 325 MG TAB PO SCH (09:08)
[2020-03-03] MEDS: ENOXAPARIN 40 MG/0.4 ML SYRINGE SQ SCH (09:08)
[2020-03-03] MEDS: CEFEPIME 2 GM in SODIUM CHLORIDE 0.9% 100 ML IVPB SCH ×2 (09:09→22:00)
[2020-03-03] MEDS: INSULIN NPH 300 UNIT/3 ML VIAL SQ SCH ×2 (09:10→22:01)
[2020-03-03] MEDS: SODIUM CHLORIDE 0.9% 1,000 ML IV SCH ×2 (09:11→22:01)
[2020-03-03] MEDS: HYDROcodone/APAP 5-325MG 1 EACH TAB PO PRN (09:24)
--- NOTE | 2020-03-03 10:38 | P.PN ---
Progress Note - Text Progress Note Date: 03/03/20 Orthopedics: History of present illness: Patient is a very pleasant 59-year-old male who is seen and examined at the bedside for further evaluation for his left ankle. He has a history of left ankle fracture with subsequent open reduction and internal fixation with symptomatic hardware and intermittent draining hematoma. He is now status post left ankle removal of hardware performed on 03/01/2020. He continues to be seen by medicine and infectious disease. Cultures continued to be pending. Per infectious disease, patient will remain in the hospital until cultures are finalized at which time patient will have a PICC line placed prior to discharge. He feels his left ankle pain is adequately controlled. A boot for the left lower extremity has been delivered. The block for the left lower extremity has worn off. He has been able to ambulate to the restroom slowly with the boot intact. He is avoiding excessive activities with the left lower extremity. He continues to eat and void without difficulty. Physical Exam: Patient is awake, alert, and oriented 3 Vital signs stable Good chest excursion with deep inspiration and expiration No signs or symptoms of DVT; no lower extremity calf pain Boot is intact over the left lower extremity and is removing physical examination Dressing over the left ankle is clean, dry, intact with Rubens wrap on top No active drainage from the left ankle Patient is able to wiggle toes left foot without difficulty Patient does have sensation to palpation over the toes of left foot Vascularly intact left lower extremity No pain with palpation of the left calf; left calf is soft palpation Assessment: Status post removal of left ankle hardware performed on 03/01/2020 History of left ankle fracture status post open reduction internal fixation with symptomatic hardware pain and intermittent draining hematoma Type 2 diabetes mellitus requiring insulin Diabetic peripheral neuropathy Plan: 1. Patient may continue to weight-bear as tolerated on the left lower extremity with the boot intact 2. Keep dressing over the left ankle clean, dry, intact 3. Patient may elevate the left lower extremity and apply ice over the dressing for comfort support as needed 4. Continue pain control with IV Dilaudid and/or oral [place] as prescribed as needed for control his symptoms. 5. Patient will continue with IV antibiotics including vancomycin and cefepime currently as controlled by Dr. Bee in infectious disease; patient will continue to remain in the hospital until cultures are finalized and PICC line has been placed. Dr. Bee will manage IV antibiotics at time of discharge. 6. Continue with aspirin 325 mg daily for DVT prophylaxis. Patient is also currently receiving Lovenox while inpatient as prescribed by medicine. 7. Patient will continue be seen and examined by medicine and infectious disease 8. We will continue to follow the patient closely 9. Following discharge patient will plan to follow-up with Dr. Cowart at [facility] in approximately 1 week for further evaluation
[2020-03-03 11:30] LABS: Glucose,Whole Blood 295 mg/dL (75-99)
[2020-03-03 16:25] LABS: Glucose,Whole Blood 168 mg/dL (75-99)
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
[2020-03-03 20:09] LABS: Glucose,Whole Blood 105 mg/dL (75-99)
[2020-03-03 21:43] LABS: Glucose,Whole Blood 134 mg/dL (75-99)
[2020-03-03] MEDS ORDERED: VANCOMYCIN 1,750 MG in SODIUM CHLORIDE 0.9% 500 ML 500 ML IVPB SCH (22:00)
--- NOTE | 2020-03-04 00:20 | PN ---
PROGRESS NOTE DATE OF SERVICE: 03/03/2020 REASON FOR FOLLOWUP: Left lateral ankle wound and osteomyelitis. INTERVAL HISTORY: The patient is currently afebrile, has been breathing comfortably. Denies having any chest pain or shortness of breath or cough. No nausea, vomiting. No abdominal pain or pain to the left foot wound area. PHYSICAL EXAMINATION: Blood pressure 143/78 with a pulse of 69, temperature 98.7, he is 97% on room air. General description is a middle-aged male lying in bed in no distress. Respiratory system: Unlabored breathing, clear to auscultation anteriorly. Heart S1, S2. Regular rate and rhythm. Abdomen soft, no tenderness. Left foot lateral border wound is currently dressed up. No obvious drainage on the dressing. LABS: Wound culture with Enterobacter: Blood culture has been negative. DIAGNOSTIC IMPRESSION AND PLAN: Patient with left lateral ankle osteomyelitis, culture with Enterobacter. Patient is covered with cefepime 2 g q.12h. PICC line on Thursday and outpatient antibiotics for 6 weeks. Continue supportive care. MMODL / IJN: [id number] /
[2020-03-04 07:02] LABS: Glucose,Whole Blood 81 mg/dL (75-99)
[2020-03-04] MEDS: LACTATED RINGERS 1,000 ML IV SCH (08:33)
[2020-03-04] MEDS: INSULIN ASPART (NovoLOG) 100 UNIT/ML VIAL SQ SCH ×7 (08:33→21:47)
[2020-03-04] MEDS: ENOXAPARIN 40 MG/0.4 ML SYRINGE SQ SCH (08:36)
[2020-03-04] MEDS: HYDROcodone/APAP 5-325MG 1 EACH TAB PO PRN (08:38)
[2020-03-04] MEDS: ASPIRIN 325 MG TAB PO SCH (08:39)
[2020-03-04] MEDS: INSULIN NPH 300 UNIT/3 ML VIAL SQ SCH ×2 (08:40→21:48)
[2020-03-04] MEDS: CEFEPIME 2 GM in SODIUM CHLORIDE 0.9% 100 ML IVPB SCH ×2 (08:41→21:47)
[2020-03-04] MEDS: SODIUM CHLORIDE 0.9% 1,000 ML IV SCH ×2 (08:42→17:03)
--- NOTE | 2020-03-04 08:52 | P.PN ---
Progress Note - Text Progress Note Date: 03/04/20 Orthopedics: History of present illness: Patient is a very pleasant 59-year-old male who is seen and examined at the bedside for further evaluation for his left ankle. He has a history of left ankle fracture with subsequent open reduction and internal fixation with symptomatic hardware and intermittent draining hematoma. He is now status post left ankle removal of hardware performed on 03/01/2020. He continues to be seen by medicine and infectious disease. Cultures are finalized yesterday. Patient states infectious diseases planning for PICC line placement tomorrow. He feels his left ankle pain is adequately controlled. A boot for the left lower extremity has been delivered. The block for the left lower extremity has worn off. He has been able to ambulate to the restroom slowly with the boot intact. He is avoiding excessive activities with the left lower extremity. He continues to eat and void without difficulty. Physical Exam: Patient is awake, alert, and oriented 3 Vital signs stable Good chest excursion with deep inspiration and expiration No signs or symptoms of DVT; no lower extremity calf pain Boot is intact over the left lower extremity and is removing physical examination Dressing over the left ankle is clean, dry, intact with Rubens wrap on top Dressing is removed during physical examination and reapplied with Adaptic, 4 x 4's, and Rubens wrap Sutures Steri-Strips remain intact over the left lateral ankle and anterior medial ankle No significant drainage over the left ankle or foot No significant pain with palpation over the surgical sites No active drainage or obvious signs of infection. Surgical sites Patient is able to wiggle toes left foot without difficulty Patient does have sensation to palpation over the toes of left foot Vascularly intact left lower extremity No pain with palpation of the left calf; left calf is soft palpation Assessment: Status post removal of left ankle hardware performed on 03/01/2020 History of left ankle fracture status post open reduction internal fixation with symptomatic hardware pain and intermittent draining hematoma Type 2 diabetes mellitus requiring insulin Diabetic peripheral neuropathy Wound cultures of the left ankle positive for Enterobacter aerogenes Plan: 1. Patient may continue to weight-bear as tolerated on the left lower extremity with the boot intact 2. Dressing at the left ankle has been removed and reapplied with Adaptic, 4 x 4's, and Rubens wrap. Patient should continue to keep the dressing over the left ankle clean, dry, intact 3. Patient may elevate the left lower extremity and apply ice over the dressing for comfort support as needed 4. Continue pain control with IV Dilaudid and/or oral [place] as prescribed as needed for control his symptoms. 5. Patient will continue with IV antibiotics including vancomycin and cefepime currently as controlled by Dr. Bee in infectious disease; cultures have been finalized. Dr. Bee is planning for PICC line placement tomorrow, 03/05/2020. Dr. Bee will manage IV antibiotics at time of discharge. 6. Continue with aspirin 325 mg daily for DVT prophylaxis. Patient is also currently receiving Lovenox while inpatient as prescribed by medicine. 7. Patient will continue to be seen and examined by medicine and infectious disease 8. We will continue to follow the patient closely 9. Following discharge patient will plan to follow-up with Dr. Cowart at [facility] in approximately 1 week for further evaluation
[2020-03-04 09:12] LABS: African American GFR (CKD) >90 (>60 ml/min/1.73 sqM); Non-African American GFR(CKD) >90 (>60 ml/min/1.73 sqM)
[2020-03-04 11:32] LABS: Glucose,Whole Blood 516 mg/dL (75-99)
[2020-03-04 11:33] LABS: Glucose,Whole Blood 424 mg/dL (75-99)
[2020-03-04 16:43] LABS: Glucose,Whole Blood 314 mg/dL (75-99)
[2020-03-04 20:50] LABS: Glucose,Whole Blood 204 mg/dL (75-99)
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
[2020-03-05] MEDS: SODIUM CHLORIDE 0.9% 1,000 ML IV SCH ×2 (04:05→15:34)
--- NOTE | 2020-03-05 04:23 | PN ---
PROGRESS NOTE DATE OF SERVICE: 03/04/2020 REASON FOR FOLLOWUP: Left lateral ankle osteomyelitis gram-negative. INTERVAL HISTORY: The patient is currently afebrile, has been breathing comfortably. Denies having any chest pain, shortness of breath or cough. No nausea or vomiting. No abdominal pain or any worsening pain to the left lateral ankle area. PHYSICAL EXAMINATION: Blood pressure 150/81 with a pulse of 77 temperature 98.1. He is 95% on room air. General description is a middle-aged male lying in bed in no distress. RESPIRATORY SYSTEM: Unlabored breathing, clear to auscultation anteriorly. HEART: S1, S2. Regular rate and rhythm. ABDOMEN: Soft, no tenderness. Left ankle wound is currently dressed up. No obvious drainage on the dressing. LABS: Wound culture has been Enterobacter aerogenes. DIAGNOSTIC IMPRESSION AND PLAN: Patient with left lateral ankle chronic nonhealing wound with evidence of underlying osteomyelitis status post debridement. The patient is currently on cefepime 2 grams q.12. He will get a PICC line tomorrow. Continue with cefepime for a total of 6 weeks and close outpatient followup condition. MMODL / IJN: [id number] /
[2020-03-05] MEDS: LACTATED RINGERS 1,000 ML IV SCH (04:57)
[2020-03-05 06:51] LABS: Glucose,Whole Blood 234 mg/dL (75-99)
[2020-03-05] MEDS: INSULIN NPH 300 UNIT/3 ML VIAL SQ SCH (07:29)
[2020-03-05] MEDS: INSULIN ASPART (NovoLOG) 100 UNIT/ML VIAL SQ SCH ×4 (07:29→13:16)
[2020-03-05] MEDS: HYDROcodone/APAP 5-325MG 1 EACH TAB PO PRN (07:40)
[2020-03-05 07:48] VITALS: RESP 18
[2020-03-05 08:13] LABS: African American GFR (CKD) >90 (>60 ml/min/1.73 sqM); Non-African American GFR(CKD) >90 (>60 ml/min/1.73 sqM)
[2020-03-05] MEDS: ENOXAPARIN 40 MG/0.4 ML SYRINGE SQ SCH (11:09)
[2020-03-05] MEDS: CEFEPIME 2 GM in SODIUM CHLORIDE 0.9% 100 ML IVPB SCH (11:21)
[2020-03-05 11:40] LABS: Glucose,Whole Blood 171 mg/dL (75-99)
[2020-03-05] MEDS ORDERED: LIDOCAINE 1% INJ 10MG/ML (20 ML MDV) SQ ONE (12:27)
--- NOTE | 2020-03-05 12:49 | IR ---
PICC LINE PLACEMENT: HISTORY: Infection requiring long-term antibiotic therapy PROCEDURE: Ultrasound and fluoroscopic guidance of PICC line placement. COMPLICATIONS: None ANESTHESIA: 1. 1% Lidocaine locally. FINDINGS/TECHNIQUE: The procedure was explained to the patient. The risks, complications, benefits and alternatives were discussed and any questions were answered. Informed consent was obtained. The patient was placed supine on the fluoroscopic table and prepped and draped in the usual sterile [facility] ion. Utilizing a 21 gauge needle and sonographic and fluoroscopic guidance, access in the vein was achieved and there is placement of a 0.018 guidewire. The vein is patent. A 4-F sheath was placed o crystal the guidewire. The guidewire and dilator were removed and a 4-F. PICC line was placed through th e sheath with the tip at the level of the SVC. The sheath was removed, the catheter was flushed and sutured into position. The patient was stable throughout the procedure and remained stable upon disc harge from the Department of Radiology. The vein puncture was patent under ultrasound. A alvarado scale image was obtained to document patency of the vein punctured. All elements of the maximal barrier technique were utilized. FLUOROSCOPY TIME: 0.4 minutes and one image submitted IMPRESSION: Successful PICC line placement under ultrasound and fluoroscopic guidance.
[2020-03-05 12:53] LABS: Glucose,Whole Blood 125 mg/dL (75-99)
[2020-03-05] MEDS: ASPIRIN 325 MG TAB PO SCH (13:24)
--- NOTE | 2020-03-05 14:13 | PN ---
PROGRESS NOTE DATE OF SERVICE: 03/05/2020 REASON FOR FOLLOWUP: Left lateral ankle osteomyelitis, Enterobacter. INTERVAL HISTORY: The patient is currently afebrile, has been breathing comfortably. The patient denies having any chest pain. No shortness of breath. No cough or any worsening pain in the left leg wound area. PHYSICAL EXAMINATION: Blood pressure is 130/79, pulse of 75 temp is 97.8, he is 94% on room air. General description is an middle-aged male, lying in bed in no distress. RESPIRATORY SYSTEM: Unlabored breathing, clear to auscultation. HEART: S1, S2. Regular rate and rhythm. ABDOMEN: Soft, no tenderness. Left ankle wound is currently dressed up. LABS: Creatinine is normal. Blood culture negative, anaerobes negative. DIAGNOSTIC IMPRESSION AND PLAN: Patient with a left lateral ankle osteomyelitis with a nonhealing wound, cultures Enterobacter. Patient is advised cefepime. However, the patient wants to go to the outpatient clinic, not doing antibiotics at home and decreased has requested for once antibiotic to switch him over to Rocephin 2 g daily and close outpatient followup condition with weekly monitoring of CBC, BMP and sedimentation rate. MMODL / IJN: [id number] /
[2020-03-05 15:14] VITALS: BP 148/78; PULSE 83; TEMP 98.8
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
== END 2020-03-05 15:45 | disposition home or self-care (01) | DRG 908 ==
LOC: OR 06:07 → 4SSUR 08:58 → OR 03-02 09:42
PROVIDERS: ADMIT Orthopaedic Surgery; ATTEND Orthopaedic Surgery
PROC: 0SPG04Z Removal of Internal Fixation Device from Left Ankle Joint, Open Approach (ICD-10-PCS; principal; 2020-03-01 07:30)
PROC: 0QBH0ZX Excision of Left Tibia, Open Approach, Diagnostic (ICD-10-PCS; principal; 2020-03-01 07:30)
PROC: 02HV33Z Insertion of Infusion Device into Superior Vena Cava, Percutaneous Approach (ICD-10-PCS; 2020-03-02)
DX: T85.79XA Infection and inflammatory reaction due to other internal prosthetic devices, implants and grafts, initial encounter (principal); M86.9 Osteomyelitis, unspecified; B96.89 Other specified bacterial agents as the cause of diseases classified elsewhere; Y79.1 Therapeutic (nonsurgical) and rehabilitative orthopedic devices associated with adverse incidents; Y83.9 Surgical procedure, unspecified as the cause of abnormal reaction of the patient, or of later complication, without mention of misadventure at the time of the procedure; E11.42 Type 2 diabetes mellitus with diabetic polyneuropathy; E11.65 Type 2 diabetes mellitus with hyperglycemia; E11.69 Type 2 diabetes mellitus with other specified complication; E87.5 Hyperkalemia; V29.9XXS Motorcycle rider (driver) (passenger) injured in unspecified traffic accident, sequela; Z79.4 Long term (current) use of insulin; Z60.2 Problems related to living alone; Z87.81 Personal history of (healed) traumatic fracture
CPT/HCPCS: 36573; 64450; 76942; 80048; 80202; 82565; 84132; 85025; 85652; 86140; 87040; 87070; 87075; 87077; 87186; 87205; 88307; 88311

== ENCOUNTER → 2020-07-31 | Outpatient (CLI) | payer OTHER ==
[2020-07-31 10:17] LABS: HCT 46.4 % (39.0-53.0); HGB 15.2 gm/dL (13.0-17.5); MCH 28.2 pg (25.0-35.0); MCHC 32.7 g/dL (31.0-37.0); MCV 86.2 fL (80.0-100.0); Mean Platelet Volume 7.2; Platelet Count 351 k/uL (150-450); RBC 5.38 m/uL (4.30-5.90); RDW 13.4 % (11.5-15.5); WBC 6.2 k/uL (3.8-10.6)
[2020-07-31 11:28] LABS: Appearance,Urine Clear (Clear); Bilirubin,Urine Negative (Negative); Blood,Urine Negative (Negative); Color,Urine Yellow; Glucose,Urine (UA) 4+ (Negative); Ketones,Urine Negative (Negative); Leukocyte Esterase,Urine Negative (Negative); Nitrite,Urine Negative (Negative); Protein,Urine Trace (Negative); Specific Gravity,Urine 1.025 (1.001-1.035); Urobilinogen,Urine <2.0 mg/dL (<2.0)
[2020-07-31 16:06] LABS: African American GFR (CKD) 96.4 (60.0-200.0); Albumin 4.5 g/dL (3.80-4.90); Albumin/Globulin Ratio 1.88 (1.60-3.17); Calcium 9.7 mg/dL (8.7-10.3); Chol/HDL Ratio 3.71; Globulin 2.4 g/dL (1.6-3.3); Non-African American GFR(CKD) 83.2 (60.0-200.0); PSA Annual Screen 0.7 ng/mL (0.0-4.0); Potassium 5.3 mmol/L (3.5-5.5); Total Bilirubin 0.6 mg/dL (0.3-1.2); Total Protein 6.9 g/dL (6.2-8.2)
[2020-07-31 16:18] LABS: Hemoglobin A1C 11.4 % (4.0-6.0)
[2020-07-31 23:46] LABS: Urine Creatinine 212.2 mg/dL
== END | disposition home or self-care (01) ==
LOC: LABWHC1 08:19
PROVIDERS: ATTEND Family Medicine
DX: Z00.00 Encounter for general adult medical examination without abnormal findings (principal); E10.65 Type 1 diabetes mellitus with hyperglycemia
CPT/HCPCS: 80061; 80053; 84443; 85027; 81003; 82306; 82043; 82570; 83036; 36415; G0103

== ENCOUNTER 2020-10-12 07:42 | Day surgery (SDC) | payer BC, OTHER ==
[2020-10-10 09:46] VITALS: BMI 28.5
[2020-10-12] MEDS ORDERED: LACTATED RINGERS 1,000 ML IV SCH (08:02)
[2020-10-12 08:23] VITALS: RESP 16; TEMP 98
[2020-10-12 08:26] LABS: Glucose,Whole Blood 289 mg/dL (75-99)
[2020-10-12] MEDS ORDERED: LIDOCAINE 1% (10MG/ML) FOR IV START INTRADERMA ONE (08:26)
[2020-10-12] MEDS ORDERED: INSULIN ASPART (NovoLOG) 100 UNIT/ML VIAL SQ ONE (08:28)
[2020-10-12] MEDS ORDERED: PROPOFOL 10 MG/ML 20 ML VIAL IV ONE (08:34)
--- NOTE | 2020-10-12 08:56 | P.PCN ---
Date of Procedure: 10/12/20 Procedure(s) Performed: BRIEF HISTORY: Patient is a 60-year-old pleasant white male scheduled for an elective colonoscopy as a part of screening for colorectal neoplasia. PROCEDURE PERFORMED: Colonoscopy With snare polypectomy PREOPERATIVE DIAGNOSIS: Screening for colon cancer. IV sedation per Anesthesia. PROCEDURE: After informed consent was obtained, the patient, was brought into the endoscopy unit. IV sedation was administered by Anesthesia under continuous monitoring. Digital rectal examination was normal. Initially the Olympus CF-160 flexible video colonoscope was then inserted in the rectum, gradually advanced into the cecum without any difficulty. Careful examination was performed as the scope was gradually being withdrawn. Ileocecal valve and the appendiceal orifice were visualized and appeared normal. Prep was excellent. Mucosa of the cecum, appeared normal. Ascending colon there was a 7 mm flat polyp removed by snare polypectomy. Rest of the ascending colon, transverse colon, descending colon, sigmoid colon, and rectum appeared normal. Retroflexion was performed in the rectum and no lesions were seen. The patient tolerated the procedure well. IMPRESSION: 7-8 mm flat ascending colon polyp status post polypectomy Rest of the colon appeared normal RECOMMENDATIONS: Findings of this examination were discussed with the patient [as well as his family. He was advised to follow with the biopsy results. If the biopsy shows an adenoma he can have a repeat colonoscopy in 5 years
[2020-10-12 09:04] LABS: Glucose,Whole Blood 294 mg/dL (75-99)
[2020-10-12 09:17] VITALS: BP 107/62; PULSE 71
== END 2020-10-12 09:34 | disposition home or self-care (01) ==
LOC: ORWHC2ENDO 07:42
PROVIDERS: ATTEND Internal Medicine Gastroenterology
DX: Z12.11 Encounter for screening for malignant neoplasm of colon (principal); K63.5 Polyp of colon; E78.5 Hyperlipidemia, unspecified; E11.9 Type 2 diabetes mellitus without complications; Z79.82 Long term (current) use of aspirin; Z79.4 Long term (current) use of insulin; Z79.899 Other long term (current) drug therapy
CPT/HCPCS: 88305; 45385; J2704